=== PATIENT | male | born 1955 | race Caucasian/White ===

== ENCOUNTER 2016-11-10 13:23 | Inpatient (IN) | payer OTHER ==
[2016-11-10 14:57] VITALS: BMI 28.2
--- NOTE | 2016-11-10 17:19 | HP ---
CIWA Score - CIWA Score Nausea/Vomitin-Mild Nausea/No Vomiting Muscle Tremors: 4-Moderate,w/Arms Extend Anxiety: 4-Mod. Anxious/Guarded Agitation: 4-Moderately Restless Paroxysmal Sweats: 1-Minimal Palms Moist Orientation: 0-Oriented Tacttile Disturbances: 0-None Auditory Disturbances: 0-None Visual Disturbances: 0-None Headache: 0-None Present CIWA-Ar Total Score: 14 Admission ROS BHS - HPI Chief Complaint: withdrawal sx Allergies/Adverse Reactions: Allergies Allergy/AdvReac Type Severity Reaction Status Date / Time bupropion HCl Allergy Mild Rash Verified 11/10/16 16:28 [From Wellbutrin] History of Present Illness: 61 years old male with long history of alcohol dependence has bph and anxiety is admitted to detox Exam Limitations: No Limitations - Ebola screening Have you traveled outside of the country in the last 21 days: No Have you had contact with anyone from an Ebola affected area: No Have you been sick,other than usual withdrawal symptoms: No Do you have a fever: No - Review of Systems Constitutional: Chills, Changes in sleep, Weight Stable EENT: reports: Blurred Vision (eye glasses), Dental Problems (multiple teeth missing) Respiratory: reports: No Symptoms reported Cardiac: reports: No Symptoms Reported GI: reports: Nausea, Poor Fluid Intake, Abdominal cramping : reports: Frequency Musculoskeletal: reports: Back Pain Integumentary: reports: No Symptoms Reported Neuro: reports: Tremors Endocrine: reports: No Symptoms Reported Hematology: reports: No Symptoms Reported Psychiatric: reports: No Sypmtoms Reported, Judgement Intact, Orientated x3, Anxious Other Systems: Reviewed and Negative Patient History - Patient Medical History Hx Anemia: No Hx Asthma: No Hx Chronic Obstructive Pulmonary Disease (COPD): No Hx Cancer: No Hx Cardiac Disorders: No Hx Congestive Heart Failure: No Hx Hypertension: No Hx Hypercholesterolemia: No Hx Pacemaker: No HX Cerebrovascular Accident: No Hx Seizures: No Hx Dementia: No Hx Diabetes: No Hx Gastrointestinal Disorders: No Hx Liver Disease: No Hx Genitourinary Disorders: No Hx Sexually Transmitted Disorders: No Hx Renal Disease (ESRD): No Hx Thyroid Disease: No Hx Human Immunodeficiency Virus (HIV): No (negative) Hx Hepatitis C: No Hx Depression: Yes Hx Suicide Attempt: Yes (tried to OD pill 8yrs ago. denies any S&H ideation at presetn) Hx Bipolar Disorder: No Hx Schizophrenia: No - Patient Surgical History Past Surgical History: Yes Hx Neurologic Surgery: No Hx Cataract Extraction: No Hx Cardiac Surgery: No Hx Lung Surgery: No Hx Breast Surgery: No Hx Breast Biopsy: No Hx Abdominal Surgery: No Hx Appendectomy: No Hx Cholecystectomy: No Hx Genitourinary Surgery: No Hx Orthopedic Surgery: No Other Surgical History: tonsillectomy at age 1 Anesthesia Reaction: No - PPD History Previous Implant?: Yes Documented Results: Negative w/o proof Implanted On Prior R Admission?: No PPD to be Administered?: Yes - Smoking Cessation Smoking history: Former smoker Have you smoked in the past 12 months: No Hx Chewing Tobacco Use: No Initiated information on smoking cessation: No - Substance & Tx. History Hx Alcohol Use: Yes Hx Substance Use: No Substance Use Type: Alcohol Hx Substance Use Treatment: Yes (05/19-05/20/15 [facility] - Substances Abused Alcohol Route: Oral Frequency: Daily Amount used: liquor- 2 pint Age of first use: 12 Date of Last Use: 11/10/16 Family Disease History - Family Disease History Family Disease History: CA: Mother (stomach CA --), Brother (), Other: Father (alcohol,), Brother Admission Physical Exam S - Vital Signs Vital Signs: Vital Signs - 24 hr 11/10/16 14:55 Temperature 97.3 F L Pulse Rate 103 H Respiratory 18 Rate Blood Pressure 126/70 - Physical General Appearance: Yes: Nourished, Appropriately Dressed, Mild Distress, Alcohol on Breath, Tremorous, Irritable, Sweating, Anxious HEENTM: Yes: Hearing grossly Normal, Normal ENT Inspection, Normocephalic, Normal Voice Respiratory: Yes: Chest Non-Tender, Lungs Clear, Normal Breath Sounds, No Respiratory Distress, No Accessory Muscle Use Neck: Yes: Supple, Trachea in good position Breast: Yes: Breasts Symetrical Cardiology: Yes: Regular Rhythm, S1, S2, Tachycardia Abdominal: Yes: Normal Bowel Sounds, Non Tender, Soft Genitourinary: Yes: Frequency Back: Yes: Normal Inspection Musculoskeletal: Yes: full range of Motion, Gait Steady, Back pain Extremities: Yes: Normal Range of Motion, Non-Tender, Tremors Neurological: Yes: Fully Oriented, Alert, Motor Strength 5/5, Normal Response, Depressed Affect Integumentary: Yes: Warm Lymphatic: Yes: Within Normal Limits - Diagnostic (1) Alcohol dependence with uncomplicated withdrawal Current Visit: Yes Status: Acute (2) Benign prostatic hypertrophy Current Visit: Yes Status: Chronic Qualifiers: Lower urinary tract symptom presence: symptoms present Lower urinary tract symptom detail: urinary frequency Qualified Code(s): N40.1 - Benign prostatic hyperplasia with lower urinary tract symptoms; R35.0 - Frequency of micturition (3) Anxiety with depression Current Visit: Yes Status: Suspected Comment: follow up with psychiatrist Cleared for Admission [facility] - Detox or Rehab [facility] Level of Care: Medically Managed Detox Regimen/Protocol: Librium [facility] Breath Alcohol Content Breath Alcohol Content: 0.103 Urine Drug Screen - Results Drug Screen Negative: No Urine Drug Screen Results: BZO-Benzodiazepines
[2016-11-10] MEDS ORDERED: guaiFENesin/D-METHORPHAN HB 10 ML UNIT-DOSE CUPS PO PRN (17:23)
[2016-11-10] MEDS ORDERED: MAGNESIUM HYDROX 2400MG/30ML ORAL SUSPENSION 30 ML CUP PO PRN (17:23)
[2016-11-10] MEDS ORDERED: MAGNESIUM CITRATE 300 ML BOTTLE PO PRN (17:23)
[2016-11-10] MEDS ORDERED: P-EPHED 60MG/TRIPROLIDI 2.5MG TABLET PO PRN (17:23)
[2016-11-10] MEDS ORDERED: MENTHOL/PHENOL 1 EACH UD MM PRN (17:23)
[2016-11-10] MEDS ORDERED: IBUPROFEN 400 MG TABLET (FP) PO PRN (17:23)
[2016-11-10] MEDS ORDERED: hydrOXYzine PAMOATE 50 MG CAPSULE (FP) PO PRN (17:23)
[2016-11-10] MEDS ORDERED: MAG HYDROX/AL HYDROX/SIMETH 30 ML UNIT-DOSE CUP PO PRN (17:23)
[2016-11-10] MEDS ORDERED: chlordiazePOXIDE HCL 25 MG CAPSULE PO ONE (18:00)
[2016-11-10] MEDS: THIAMINE HCL 100 MG TABLET (FP) PO SCH (22:12)
[2016-11-10] MEDS: chlordiazePOXIDE HCL 25 MG CAPSULE PO SCH (22:13)
[2016-11-10 23:21] LABS: URINE APPEARANCE CLEAR; URINE BILIRUBIN NEGATIVE (NEGATIVE); URINE BLOOD 1+ (NEGATIVE); URINE COLOR STRAW; URINE GLUCOSE (UA) NEGATIVE (NEGATIVE); URINE KETONE TRACE (NEGATIVE); URINE LEUK ESTERASE TRACE (NEGATIVE); URINE NITRITE NEGATIVE (NEGATIVE); URINE PROTEIN NEGATIVE (NEGATIVE); URINE UROBILINOGEN NEGATIVE mg/dL (0.2-1.0)
[2016-11-10 23:56] LABS: URINE BACTERIA RARE /hpf (NONE SEEN); URINE MUCUS RARE; URINE RBC 1 /hpf (0-3); URINE WBC 1 /hpf (3-5)
[2016-11-11] MEDS: chlordiazePOXIDE HCL 25 MG CAPSULE PO SCH ×4 (05:34→22:12)
[2016-11-11] MEDS: FINASTERIDE 5 MG TABLET (FP) PO SCH (10:06)
[2016-11-11] MEDS: IBUPROFEN 600 MG TABLET (FP) PO PRN ×3 (10:06→22:13)
[2016-11-11] MEDS: PRENATAL VITAMINS W/ FOLIC ACID TABLET (FP) PO SCH (10:06)
[2016-11-11 10:33] LABS: ALBUMIN 3.8 g/dl (3.4-5.0); ANION GAP 11 (8-16); CALCIUM 9.2 mg/dL (8.5-10.1); CO2 23 mmol/L (21-32); GLUCOSE,RANDOM 85 mg/dL (74-106)
[2016-11-11 10:36] LABS: ALK PHOS 89 U/L (45-117); BILIRUBIN,TOTAL 0.4 mg/dL (0.2-1.0); SGOT/AST 22 U/L (15-37); SGPT/ALT 31 U/L (12-78); TOT PROT 7.6 g/dl (6.4-8.2)
[2016-11-11 10:38] LABS: MCH 33.5 pg (25.7-33.7); MCHC 33.8 g/dl (32.0-35.9); MEAN CELL VOLUME 99.3 fl (80-96); MEAN PLT VOLUME 9.6 fl (7.5-11.1); PLATELET COUNT 221 K/MM3 (134-434); WHITE BLOOD COUNT 5.8 K/mm3 (4.0-10.0)
--- NOTE | 2016-11-11 11:56 | PN ---
[facility] CIWA - CIWA Score Nausea/Vomitin Muscle Tremors: 4-Moderate,w/Arms Extend Anxiety: 3 Agitation: 3 Paroxysmal Sweats: 2 Orientation: 0-Oriented Tacttile Disturbances: 3-Moderate Itch/Numb/Burn Auditory Disturbances: 0-None Visual Disturbances: 0-None Headache: 0-None Present CIWA-Ar Total Score: 17 BHS Progress Note (SOAP) Subjective: Tremors, Body Aches. Objective: PT. A & O X 3, OBSERVED AMBULATING ON UNIT. NO ACUTE DISTRESS. PT. DENIES CHEST PAIN. 11/11/16 11:54 Vital Signs Temperature 97.4 F L 11/11/16 09:54 Pulse Rate 76 11/11/16 09:54 Respiratory Rate 18 11/11/16 09:54 Blood Pressure 120/79 11/11/16 09:54 O2 Sat by Pulse Oximetry (%) Laboratory Tests 11/10/16 11/11/16 11/11/16 23:11 06:00 06:00 WBC 5.8 D RBC 4.45 D Hgb 14.9 D Hct 44.2 D MCV 99.3 H MCH 33.5 MCHC 33.8 RDW 14.0 D Plt Count 221 MPV 9.6 D Sodium 144 Potassium 3.7 Chloride 110 H Carbon Dioxide 23 Anion Gap 11 BUN 17 D Creatinine 1.0 D Creat Clearance w eGFR > 60 Random Glucose 85 Calcium 9.2 Total Bilirubin 0.4 AST 22 D ALT 31 D Alkaline Phosphatase 89 Total Protein 7.6 D Albumin 3.8 Urine Color Straw Urine Appearance Clear Urine pH 6.0 Urine Protein Negative Urine Glucose (UA) Negative Urine Ketones Trace H Urine Blood 1+ H Urine Nitrite Negative Urine Bilirubin Negative Urine Urobilinogen Negative Ur Leukocyte Esterase Trace Urine RBC 1 Urine WBC 1 Ur Epithelial Cells Rare Urine Bacteria Rare Urine Mucus Rare LABS NOTED. RPR RESULT PENDING. 11/11/16 11:56 Assessment: 11/11/16 11:54 WITHDRAWAL SYMPTOMS. Plan: CONTINUE DETOX.
--- NOTE | 2016-11-11 12:33 | CONSULT ---
[facility] Psychiatric Consult - Data Date of interview: 11/11/16 Admission source: [facility] Identifying data: Readmission to [facility] for this 61 y/o male seeking detox treatment on for alcohol dependence.Patient is single without children,domiciled,unemployed and supported on [facility] benefits. Substance Abuse History: Discussed with patient in this session.Mr Reno confirms this report. Smoking Cessation. Smoking history: Former smoker. Have you smoked in the past 12 months: No. Hx Chewing Tobacco Use: No. Initiated information on smoking cessation: No. - Substance & Tx. History. Hx Alcohol Use: Yes. Hx Substance Use: No. Substance Use Type: Alcohol. Hx Substance Use Treatment: Yes (05/19-05/20/15 [facility]). - Substances Abused. * * Alcohol. Route: Oral. Frequency: Daily. Amount used: liquor- 2 pint. Age of first use: 12. Date of Last Use: 11/10/16 Medical History: History of spinal stenosis,angina and lower back pain.Currently treated for benign prostatic hyperplasia. Psychiatric History: Patient denies. Physical/Sexual Abuse/Trauma History: Patient denies. Additional Comment: Urine Drug Screen Results: BZO-Benzodiazepines.Noted. Mental Status Exam - Mental Status Exam Alert and Oriented to: Time, Place, Person Cognitive Function: Good Patient Appearance: Disheveled Mood: Nervous, Withdrawn Affect: Normal Range Patient Behavior: Fatigued, Appropriate, Cooperative Speech Pattern: Clear Voice Loudness: Normal Thought Process: Goal Oriented Thought Disorder: Not Present Hallucinations: Denies Suicidal Ideation: Denies Homicidal Ideation: Denies Insight/Judgement: Fair Sleep: Well Appetite: Good Muscle strength/Tone: Normal Gait/Station: Normal Psychiatric Findings - Problem List ([place] 1, 2,3) (1) Alcohol dependence with uncomplicated withdrawal Current Visit: Yes Status: Acute (2) History of angina Current Visit: Yes Status: Chronic (3) Benign prostatic hypertrophy Current Visit: Yes Status: Chronic Qualifiers: Lower urinary tract symptom presence: symptoms present Lower urinary tract symptom detail: urinary frequency Qualified Code(s): N40.1 - Benign prostatic hyperplasia with lower urinary tract symptoms; R35.0 - Frequency of micturition (4) Chronic low back pain Current Visit: Yes Status: Chronic (5) Spinal stenosis at L4-L5 level Current Visit: Yes Status: Chronic - Initial Treatment Plan Initial Treatment Plan: Psychoeducation.Detoxification.Observation.
[2016-11-11] MEDS: chlordiazePOXIDE HCL 25 MG CAPSULE PO PRN (13:40)
--- NOTE | 2016-11-11 20:02 | EKG ---
Test Reason : Blood Pressure : / mmHG Vent. Rate : 079 BPM Atrial Rate : 079 BPM P-R Int : 188 ms QRS Dur : 162 ms QT Int : 440 ms P-R-T Axes : 073 135 055 degrees QTc Int : 504 ms NORMAL SINUS RHYTHM RIGHT BUNDLE BRANCH BLOCK ABNORMAL ECG NO PREVIOUS ECGS AVAILABLE Confirmed by LUCY FALK MD ([id number]) on 11/11/2016 8:01:30 PM Referred By: Confirmed By:LUCY FALK MD
[2016-11-11] MEDS: diphenhydrAMINE HCL 50 MG CAPSULE PO PRN (22:14)
[2016-11-11] MEDS: THIAMINE HCL 100 MG TABLET (FP) PO SCH (22:15)
[2016-11-12] MEDS: ACETAMINOPHEN 325 MG TABLET (FP) PO PRN ×2 (03:28→22:09)
[2016-11-12] MEDS: chlordiazePOXIDE HCL 25 MG CAPSULE PO PRN ×2 (03:29→14:41)
[2016-11-12] MEDS: chlordiazePOXIDE HCL 25 MG CAPSULE PO SCH ×3 (06:09→17:29)
--- NOTE | 2016-11-12 09:35 | PN ---
S CIWA - CIWA Score Nausea/Vomitin Muscle Tremors: 4-Moderate,w/Arms Extend Anxiety: 4-Mod. Anxious/Guarded Agitation: 3 Paroxysmal Sweats: 3 Orientation: 0-Oriented Tacttile Disturbances: 1-Very Mild Itch/Numbness Auditory Disturbances: 0-None Visual Disturbances: 0-None Headache: 0-None Present CIWA-Ar Total Score: 18 BHS Progress Note (SOAP) Subjective: nausea, sweats, interrupted sleep, anxiety, tremors Objective: 11/12/16 09:34 Vital Signs - 24 hr 11/11/16 11/11/16 11/11/16 09:54 13:41 18:01 Temperature 97.4 F L 98.7 F 98.4 F Pulse Rate 76 69 61 Respiratory 18 20 18 Rate Blood Pressure 120/79 130/89 117/74 11/11/16 11/12/16 11/12/16 22:20 00:26 03:30 Temperature 97.2 F L Pulse Rate 66 Respiratory 18 18 18 Rate Blood Pressure 124/87 11/12/16 06:41 Temperature 97.5 F L Pulse Rate 71 Respiratory 18 Rate Blood Pressure 116/85 Laboratory Tests 11/10/16 11/11/16 11/11/16 23:11 06:00 06:00 WBC 5.8 D RBC 4.45 D Hgb 14.9 D Hct 44.2 D MCV 99.3 H MCH 33.5 MCHC 33.8 RDW 14.0 D Plt Count 221 MPV 9.6 D Sodium 144 Potassium 3.7 Chloride 110 H Carbon Dioxide 23 Anion Gap 11 BUN 17 D Creatinine 1.0 D Creat Clearance w eGFR > 60 Random Glucose 85 Calcium 9.2 Total Bilirubin 0.4 AST 22 D ALT 31 D Alkaline Phosphatase 89 Total Protein 7.6 D Albumin 3.8 Urine Color Straw Urine Appearance Clear Urine pH 6.0 Ur Specific [place] 1.010 Urine Protein Negative Urine Glucose (UA) Negative Urine Ketones Trace H Urine Blood 1+ H Urine Nitrite Negative Urine Bilirubin Negative Urine Urobilinogen Negative Ur Leukocyte Esterase Trace Urine RBC 1 Urine WBC 1 Ur Epithelial Cells Rare Urine Bacteria Rare Urine Mucus Rare RPR Titer 11/11/16 06:00 WBC RBC Hgb Hct MCV MCH MCHC RDW Plt Count MPV Sodium Potassium Chloride Carbon Dioxide Anion Gap BUN Creatinine Creat Clearance w eGFR Random Glucose Calcium Total Bilirubin AST ALT Alkaline Phosphatase Total Protein Albumin Urine Color Urine Appearance Urine pH Ur Specific [place] Urine Protein Urine Glucose (UA) Urine Ketones Urine Blood Urine Nitrite Urine Bilirubin Urine Urobilinogen Ur Leukocyte Esterase Urine RBC Urine WBC Ur Epithelial Cells Urine Bacteria Urine Mucus RPR Titer Nonreactive Assessment: 11/12/16 09:35 withdrawal sx, imodium for diarrhea Plan: cont detox, fluids, encoruage ambulation
[2016-11-12] MEDS: PRENATAL VITAMINS W/ FOLIC ACID TABLET (FP) PO SCH (10:13)
[2016-11-12] MEDS: FINASTERIDE 5 MG TABLET (FP) PO SCH (10:14)
[2016-11-12] MEDS: LOPERAMIDE HCL 2 MG CAPSULE PO PRN ×2 (10:14→17:29)
[2016-11-12] MEDS: IBUPROFEN 600 MG TABLET (FP) PO PRN ×2 (10:14→17:31)
[2016-11-12] MEDS: chlordiazePOXIDE 5 MG CAPSULE PO SCH (22:08)
[2016-11-12] MEDS: THIAMINE HCL 100 MG TABLET (FP) PO SCH (22:08)
[2016-11-12] MEDS: diphenhydrAMINE HCL 50 MG CAPSULE PO PRN (22:10)
[2016-11-13] MEDS: chlordiazePOXIDE 5 MG CAPSULE PO SCH ×3 (05:45→19:09)
[2016-11-13] MEDS: IBUPROFEN 600 MG TABLET (FP) PO PRN ×2 (05:46→22:23)
[2016-11-13] MEDS: LOPERAMIDE HCL 2 MG CAPSULE PO PRN (05:46)
[2016-11-13] MEDS: PRENATAL VITAMINS W/ FOLIC ACID TABLET (FP) PO SCH (10:15)
[2016-11-13] MEDS: FINASTERIDE 5 MG TABLET (FP) PO SCH (10:15)
[2016-11-13] MEDS: ACETAMINOPHEN 325 MG TABLET (FP) PO PRN (10:16)
[2016-11-13] MEDS: chlordiazePOXIDE HCL 25 MG CAPSULE PO PRN (13:08)
--- NOTE | 2016-11-13 15:02 | PN ---
BHS Progress Note (SOAP) Subjective: Sweating,interrupted sleep,restless Objective: 11/13/16 15:00 Vital Signs - 8 hr 11/13/16 11/13/16 11/13/16 09:29 09:45 13:49 Temperature 97.9 F 97.9 F 98.0 F Pulse Rate 72 18 L 75 Respiratory 18 72 H 18 Rate Blood Pressure 116/81 116/81 128/83 Laboratory Last Values WBC 5.8 K/mm3 (4.0-10.0) D 11/11/16 06:00 RBC 4.45 M/mm3 (4.00-5.60) D 11/11/16 06:00 Hgb 14.9 GM/dL (11.7-16.9) D 11/11/16 06:00 Hct 44.2 % (35.4-49) D 11/11/16 06:00 MCV 99.3 fl (80-96) H 11/11/16 06:00 MCH 33.5 pg (25.7-33.7) 11/11/16 06:00 MCHC 33.8 g/dl (32.0-35.9) 11/11/16 06:00 RDW 14.0 % (11.9-15.9) D 11/11/16 06:00 Plt Count 221 K/MM3 (134-434) 11/11/16 06:00 MPV 9.6 fl (7.5-11.1) D 11/11/16 06:00 Sodium 144 mmol/L (136-145) 11/11/16 06:00 Potassium 3.7 mmol/L (3.5-5.1) 11/11/16 06:00 Chloride 110 mmol/L (98-107) H 11/11/16 06:00 Carbon Dioxide 23 mmol/L (21-32) 11/11/16 06:00 Anion Gap 11 (8-16) 11/11/16 06:00 BUN 17 mg/dL (7-18) D 11/11/16 06:00 Creatinine 1.0 mg/dL (0.7-1.3) D 11/11/16 06:00 Creat Clearance w eGFR > 60 (>60) 11/11/16 06:00 Random Glucose 85 mg/dL (74-106) 11/11/16 06:00 Calcium 9.2 mg/dL (8.5-10.1) 11/11/16 06:00 Total Bilirubin 0.4 mg/dL (0.2-1.0) 11/11/16 06:00 AST 22 U/L (15-37) D 11/11/16 06:00 ALT 31 U/L (12-78) D 11/11/16 06:00 Alkaline Phosphatase 89 U/L (45-117) 11/11/16 06:00 Total Protein 7.6 g/dl (6.4-8.2) D 11/11/16 06:00 Albumin 3.8 g/dl (3.4-5.0) 11/11/16 06:00 Urine Color Straw 11/10/16 23:11 Urine Appearance Clear 11/10/16 23:11 Urine pH 6.0 (5.0-8.0) 11/10/16 23:11 Ur Specific [place] 1.010 (1.005-1.025) 11/10/16 23:11 Urine Protein Negative (NEGATIVE) 11/10/16 23:11 Urine Glucose (UA) Negative (NEGATIVE) 11/10/16 23:11 Urine Ketones Trace (NEGATIVE) H 11/10/16 23:11 Urine Blood 1+ (NEGATIVE) H 11/10/16 23:11 Urine Nitrite Negative (NEGATIVE) 11/10/16 23:11 Urine Bilirubin Negative (NEGATIVE) 11/10/16 23:11 Urine Urobilinogen Negative mg/dL (0.2-1.0) 11/10/16 23:11 Ur Leukocyte Esterase Trace (NEGATIVE) 11/10/16 23:11 Urine RBC 1 /hpf (0-3) 11/10/16 23:11 Urine WBC 1 /hpf (3-5) 11/10/16 23:11 Ur Epithelial Cells Rare /hpf (FEW) 11/10/16 23:11 Urine Bacteria Rare /hpf (NONE SEEN) 11/10/16 23:11 Urine Mucus Rare 11/10/16 23:11 RPR Titer Nonreactive (NONREACTIVE) 11/11/16 06:00 labs noted Assessment: 11/13/16 15:01 Withdrawal sx. Plan: Continue detox
[2016-11-13] MEDS ORDERED: QUEtiapine FUMARATE 100 MG TABLET (FP) PO ONE (15:11)
[2016-11-13] MEDS ORDERED: QUEtiapine FUMARATE 50 MG TABLET PO ONE (15:28)
--- NOTE | 2016-11-13 16:27 | PN ---
Psychiatric Progress Note Vital Signs: Vital Signs Period Temp Pulse Resp BP Sys/Negrete Pulse Ox Last 24 Hr 97.2 F-98.6 F 18- 18-72 110-128/77-93 Date of Session: 11/13/16 Chief Complaint:: " I want to kill myself.My life is so miserable." HPI: Day 4 of treatment for alcohol dependence.Hospital course was uneventful until the patient reported today to his counselor that he " lied to staff in the emergency room to get admitted up here " and endorsed visual hallucinations (seeing flashes of light) + feelings of worthlessness and suicidal ideation.Mr Reno indicates that he " does not trust " himself and,if discharged home,he would put one of his guns to his mouth and " end it all." Patient has concealed his psychiatric history to staff since admission.Mr Reno only reported today that he had " more than 25 psychiatric admissions " and gets his psychiatric OPD care at the [facility] clinic (non adherent to his regimen of medications for two weeks : seroquel,remeron, haloperidol,citalopram). ROS: Patient is ambulatory,visible on the unit.Alert and fully oriented.No physical complaints offered. Current Medications: Active Medications Generic Name Dose Route Start Last Admin Trade Name Freq PRN Reason Stop Dose Admin Acetaminophen 650 mg 11/10/16 17:23 11/13/16 10:16 Tylenol - PO 650 mg Q4H PRN Administration FEVER OR PAIN Al Hydroxide/Mg Hydroxide 30 ml 11/10/16 17:23 Mylanta Oral Suspension - PO Q6H PRN DYSPEPSIA Chlordiazepoxide HCl 10 mg 11/13/16 23:00 Librium - PO 11/14/16 17:01 [id number] ROSALVA Chlordiazepoxide HCl 25 mg 11/10/16 17:23 11/13/16 13:08 Librium - PO 11/13/16 17:22 25 mg Q4H PRN Administration WITHDRAWAL(CONT SUBST) Chlordiazepoxide HCl 15 mg 11/12/16 23:00 11/13/16 10:14 Librium - PO 11/13/16 17:01 15 mg [id number] ROSALVA Administration Diphenhydramine HCl 50 mg 11/10/16 17:23 11/12/16 22:10 Benadryl - PO 50 mg HSMR1 PRN Administration INSOMNIA Eucalyptus/Menthol/Phenol/Sorbitol 1 each 11/10/16 17:23 Cepastat Lozenge - MM Q4H PRN SORE THROAT Finasteride 5 mg 11/11/16 10:00 11/13/16 10:15 Proscar - PO 5 mg DAILY ROSALVA Administration Guaifenesin 10 ml 11/10/16 17:23 Robitussin Dm - PO Q6H PRN COUGH Hydroxyzine Pamoate 50 mg 11/10/16 17:23 11/12/16 03:29 Vistaril - PO 50 mg Q4H PRN Administration AGITATION Ibuprofen 600 mg 11/11/16 09:46 11/13/16 05:46 Motrin - PO 600 mg Q8H PRN Administration SEVERE PAIN Loperamide HCl 4 mg 11/10/16 17:23 11/13/16 05:46 Imodium - PO 4 mg Q6H PRN Administration DIARRHEA Magnesium Citrate 300 ml 11/10/16 17:23 Citroma - PO Q48H PRN CONSTIPATION Magnesium Hydroxide 30 ml 11/10/16 17:23 Milk Of Magnesia - PO DAILY PRN CONSTIPATION Multivit/Folic Acid/Iron 1 tab 11/11/16 10:00 11/13/16 10:15 Vitamins (Sjr) - PO 1 tab DAILY ROSALVA Administration Pseudoephedrine/Triprolidine 1 combo 11/10/16 17:23 Actifed - PO TID PRN NASAL CONGESTION Thiamine HCl 100 mg 11/10/16 22:00 11/12/16 22:08 Vitamin B1 - PO Not Given HS [facility] Medication(s) Change(s): On admission,the patient denied being on psychotropic medications." I thought that revealing my psychiatric history would have compromised my admission to the detox unit.So I denied everything on admission. " Patient is now willing to resume medications.Mr Reno confirms recent pharmacy claims consistent with scripts for celexa 20 mg/day + seroquel 200 mg po bid + buspar 5 mg po tid.Reportedly non-aherent for two weeks.Will restart all medications (seroquel is to be reduced to 100 mg po bid and titrated).Side effects/benefits discussed with the patient.He is in agreement with this careplan. Current Side Effect: No Lab tests ordered: No Lab tests reviewed: Yes Provider note:: Patient is interviewed in a Multidisciplinary conference attended by counselor Kaitlyn Aguilar,counselor human services supervisor Amy Sim,nurse Camryn Hubbard,couselor Son-Tam Turner and attending psychiatrist Dr Herman Rhodes.Chart reviewed.Pharmacy claims revisited and disposition discussed.Mr Reno insists that he feels unworthy of living,intensely suicidal,despondent over " so many losses " in his life and declares to the treatment team that he will use one of his guns,once discharged,to end his life.Patient made staff aware of the recent of his younger brother to suicide (deliberate overdose with pain medications) last month.Mr Reno states that he is " tired of this miserable life ",a reference to multiple deaths in his immediate family,his social downdrift (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 career 10 years ago) and social withdrawal." I should have ten years ago ." Patient complains that he is " losing control " and he fears escalation towards self-destruction.This is a crisis situation that cannot be managed on a detox unit.Transfer to a psychiatric institution is warranted for safety.Contact is established with [facility] : no bed available.Several calls made to [facility] : lines are busy.In the meantime,the patient is placed on 1:1 Constant Observation.Patient is a clear and immediate danger to self.Medications are restarted.See orders.Mr Reno is converted to 2 PC status pending transfer to a psychiatric institution. Total face to face time:: 90 Mental Status Exam - Mental Status Exam Alert and Oriented to: Time, Place, Person Cognitive Function: Good Patient Appearance: Well Groomed Mood: Sad (depressed), Anxious Affect: Constricted Patient Behavior: Cooperative Speech Pattern: Clear Voice Loudness: Normal Thought Process: Goal Oriented Thought Disorder: Not Present Hallucinations: Visual (sees intermittent flashes of light) Suicidal Ideation: Current (feels that he should have killed himself years ago.States that he does not deserve to live), Plan (plans to go home and shoot himself) Homicidal Ideation: Denies Insight/Judgement: Poor Sleep: Well Appetite: Good Muscle strength/Tone: Normal Gait/Station: Normal Psychiatric Treatment Plan - Problem List (1) Schizoaffective disorder Current Visit: Yes Qualifiers: Schizoaffective disorder type: depressive Qualified Code(s): F25.1 - Schizoaffective disorder, depressive type Comment: Potentially suicidal. (2) Alcohol dependence with uncomplicated withdrawal Current Visit: Yes (3) Bereavement Current Visit: Yes Comment: Younger brother reportedly committed suicide last month. (4) History of angina Current Visit: Yes (5) Benign prostatic hypertrophy Current Visit: Yes Qualifiers: Lower urinary tract symptom presence: symptoms present Lower urinary tract symptom detail: urinary frequency Qualified Code(s): N40.1 - Benign prostatic hyperplasia with lower urinary tract symptoms; R35.0 - Frequency of micturition (6) Chronic low back pain Current Visit: Yes (7) Spinal stenosis at L4-L5 level Current Visit: Yes
[2016-11-13] MEDS: THIAMINE HCL 100 MG TABLET (FP) PO SCH (22:21)
[2016-11-13] MEDS: chlordiazePOXIDE HCL 10 MG CAPSULE PO SCH (22:23)
[2016-11-13] MEDS: busPIRone HCL 5 MG TABLET PO SCH (22:23)
[2016-11-13] MEDS: QUEtiapine FUMARATE 100 MG TABLET (FP) PO SCH (22:23)
[2016-11-14] MEDS: busPIRone HCL 5 MG TABLET PO SCH (05:11)
[2016-11-14] MEDS: chlordiazePOXIDE HCL 10 MG CAPSULE PO SCH ×2 (05:11→10:03)
[2016-11-14] MEDS: IBUPROFEN 600 MG TABLET (FP) PO PRN (05:12)
[2016-11-14 06:23] VITALS: BP 102/79; PULSE 89; TEMP 97.4
[2016-11-14] MEDS ORDERED: CITALOPRAM HYDROBROMIDE 20 MG TABLET (FP) PO SCH (10:00)
[2016-11-14] MEDS: QUEtiapine FUMARATE 100 MG TABLET (FP) PO SCH (10:03)
[2016-11-14] MEDS: FINASTERIDE 5 MG TABLET (FP) PO SCH (10:04)
[2016-11-14] MEDS: PRENATAL VITAMINS W/ FOLIC ACID TABLET (FP) PO SCH (10:05)
--- NOTE | 2016-11-14 10:57 | PN ---
[facility] Progress Note Note: Psychiatry Attending's note : Patient seen. Mr Reno remains invested in suicidal thoughts and plan (use of gun). He admits to feeling " heavily " depressed,anhedonic and worthless. Now at the completion of detox treatment,patient is fearful of discharge. " I am not ready to return home where I would stay 22 hours/day in bed wasting my life." Patient is adamant about his disinterest about living and his intent to shoot himself as soon as he reaches home." Mr Reno is under tremendous stressors : non adherence to medications, of sibling,loneliness,substance abuse, degradation of general functioning. Risk of self-harm is magnified by current ownership of firearms (easily available) and lack of supportive network. The patient cannot be discharged to the community.Mr Reno needs psychiatric hospitalization. Unsuccessful search for bed.Several facilities are contacted via telephone : [facility] NO beds available. The situation has escalated into a crisis. Patient is not suitable for management at [facility]. EMS is activated for assistance. Patient is transferred to the psychiatric emergency department at [facility] for safety. Addendum (12:50 pm) : Building Materials Sales Attendant contacted [facility] at [phone] : Dr Rene not available at time of my call. Case endorsed to nurse on duty Raquel Daniel (informed of patient's arrival via EMS).
--- NOTE | 2016-11-14 12:09 | PN ---
[facility] Progress Note (SOAP) Subjective: Tremors, H/A. Objective: PATIENT CURRENTLY BEING MAINTAINED ON 1:1 CONTINUOUS OBSERVATION FOR SUICIDAL IDEATION. PATIENT A & O X 3, OBSERVED AMBULATING ON UNIT. 11/14/16 12:07 Vital Signs Temperature 97.4 F L 11/14/16 06:22 Pulse Rate 89 11/14/16 06:22 Respiratory Rate 16 11/14/16 06:22 Blood Pressure 102/79 11/14/16 06:22 O2 Sat by Pulse Oximetry (%) Laboratory Tests 11/10/16 11/11/16 11/11/16 23:11 06:00 06:00 WBC 5.8 D RBC 4.45 D Hgb 14.9 D Hct 44.2 D MCV 99.3 H MCH 33.5 MCHC 33.8 RDW 14.0 D Plt Count 221 MPV 9.6 D Sodium 144 Potassium 3.7 Chloride 110 H Carbon Dioxide 23 Anion Gap 11 BUN 17 D Creatinine 1.0 D Creat Clearance w eGFR > 60 Random Glucose 85 Calcium 9.2 Total Bilirubin 0.4 AST 22 D ALT 31 D Alkaline Phosphatase 89 Total Protein 7.6 D Albumin 3.8 Urine Color Straw Urine Appearance Clear Urine pH 6.0 Ur Specific [place] 1.010 Urine Protein Negative Urine Glucose (UA) Negative Urine Ketones Trace H Urine Blood 1+ H Urine Nitrite Negative Urine Bilirubin Negative Urine Urobilinogen Negative Ur Leukocyte Esterase Trace Urine RBC 1 Urine WBC 1 Ur Epithelial Cells Rare Urine Bacteria Rare Urine Mucus Rare RPR Titer 11/11/16 06:00 WBC RBC Hgb Hct MCV MCH MCHC RDW Plt Count MPV Sodium Potassium Chloride Carbon Dioxide Anion Gap BUN Creatinine Creat Clearance w eGFR Random Glucose Calcium Total Bilirubin AST ALT Alkaline Phosphatase Total Protein Albumin Urine Color Urine Appearance Urine pH Ur Specific [place] Urine Protein Urine Glucose (UA) Urine Ketones Urine Blood Urine Nitrite Urine Bilirubin Urine Urobilinogen Ur Leukocyte Esterase Urine RBC Urine WBC Ur Epithelial Cells Urine Bacteria Urine Mucus RPR Titer Nonreactive LABS NOTED. Assessment: 11/14/16 12:08 WITHDRAWAL SYMPTOMS. Plan: CONTINUE DETOX.
--- NOTE | 2016-11-14 12:15 | DS ---
[facility] Detox Discharge Summary Admission Date: 11/10/16 Discharge Date: 11/14/16 - History Present History: Alcohol Dependence Additional Comments: PER RECOMMENDATION OF PSYCHIATRIST DR. VALERIY MD, PATIENT BEING TRANSFERRED TO [facility]IT FOR FURTHER EVALUATION AFTER REPORT OF SUICIDAL IDEATION WHILE ADMITTED FOR DETOX. PATIENT MAINTAINED ON 1:1 CONTINUOUS OBSERVATION FOR SUICIDAL IDEATION UP UNTIL TIME OF DISCHARGE. PATIENT DISCHARGED FROM UNIT IN STABLE MEDICAL CONDITION. PATIENT TAKEN VIA AMBULANCE TO [facility] UNIT. Pertinent Past History: BPH, Depression / Anxiety, Spinal Stenosis, Chronic Low Back Pain, History of angina. - Physical Exam Results Vital Signs: Vital Signs Temperature 97.4 F L 11/14/16 06:22 Pulse Rate 89 11/14/16 06:22 Respiratory Rate 16 11/14/16 06:22 Blood Pressure 102/79 11/14/16 06:22 O2 Sat by Pulse Oximetry (%) Pertinent Admission Physical Exam Findings: WITHDRAWAL SYMPTOMS. Laboratory Tests 11/10/16 11/11/16 11/11/16 23:11 06:00 06:00 WBC 5.8 D RBC 4.45 D Hgb 14.9 D Hct 44.2 D MCV 99.3 H MCH 33.5 MCHC 33.8 RDW 14.0 D Plt Count 221 MPV 9.6 D Sodium 144 Potassium 3.7 Chloride 110 H Carbon Dioxide 23 Anion Gap 11 BUN 17 D Creatinine 1.0 D Creat Clearance w eGFR > 60 Random Glucose 85 Calcium 9.2 Total Bilirubin 0.4 AST 22 D ALT 31 D Alkaline Phosphatase 89 Total Protein 7.6 D Albumin 3.8 Urine Color Straw Urine Appearance Clear Urine pH 6.0 Ur Specific [place] 1.010 Urine Protein Negative Urine Glucose (UA) Negative Urine Ketones Trace H Urine Blood 1+ H Urine Nitrite Negative Urine Bilirubin Negative Urine Urobilinogen Negative Ur Leukocyte Esterase Trace Urine RBC 1 Urine WBC 1 Ur Epithelial Cells Rare Urine Bacteria Rare Urine Mucus Rare RPR Titer 11/11/16 06:00 WBC RBC Hgb Hct MCV MCH MCHC RDW Plt Count MPV Sodium Potassium Chloride Carbon Dioxide Anion Gap BUN Creatinine Creat Clearance w eGFR Random Glucose Calcium Total Bilirubin AST ALT Alkaline Phosphatase Total Protein Albumin Urine Color Urine Appearance Urine pH Ur Specific [place] Urine Protein Urine Glucose (UA) Urine Ketones Urine Blood Urine Nitrite Urine Bilirubin Urine Urobilinogen Ur Leukocyte Esterase Urine RBC Urine WBC Ur Epithelial Cells Urine Bacteria Urine Mucus RPR Titer Nonreactive LABS NOTED. - Treatment Hospital Course: Detox Protocol Followed, Detoxed Safely, Responded well, Discharged Condition Good - Medication Discharge Medications: Ambulatory Orders Finasteride [Proscar -] 5 mg PO DAILY 01/23/14 Nitroglycerin 0.4 mg SL DAILY PRN 05/19/15 - Diagnosis (1) Alcohol dependence with uncomplicated intoxication Status: Acute (2) Benign prostatic hypertrophy Status: Chronic Qualifiers: Lower urinary tract symptom presence: symptoms present Lower urinary tract symptom detail: urinary frequency Qualified Code(s): N40.1 - Benign prostatic hyperplasia with lower urinary tract symptoms; R35.0 - Frequency of micturition (3) Chronic low back pain Status: Chronic Qualifiers: Back pain laterality: unspecified Sciatica presence: unspecified whether sciatica present Qualified Code(s): M54.5 - Low back pain; G89.29 - Other chronic pain (4) History of angina Status: Chronic (5) Spinal stenosis at L4-L5 level Status: Chronic (6) Anxiety with depression Status: Suspected - AMA Did Patient Leave Against Medical Advice: No
== END 2016-11-14 12:37 | DRG 897 ==
LOC: YASAS 13:23 → Y3N 16:53
PROVIDERS: ADMIT Internal Medicine; ATTEND Internal Medicine
PROC: HZ2ZZZZ Detoxification Services for Substance Abuse Treatment (ICD-10-PCS; principal; 2016-11-10)
DX: F10.230 Alcohol dependence with withdrawal, uncomplicated (principal); R45.851 Suicidal ideations; F25.9 Schizoaffective disorder, unspecified; F41.8 Other specified anxiety disorders; N40.0 Benign prostatic hyperplasia without lower urinary tract symptoms; M54.5 Low back pain; G89.29 Other chronic pain; Z86.79 Personal history of other diseases of the circulatory system; R00.0 Tachycardia, unspecified; M48.06 Spinal stenosis, lumbar region; R19.7 Diarrhea, unspecified; Z88.8 Allergy status to other drugs, medicaments and biological substances; Z63.4 Disappearance and death of family member; Z87.891 Personal history of nicotine dependence; Z91.5 Personal history of self-harm
CPT/HCPCS: 36415; 80053; 81003; 81015; 85027; 86593; 93005; 93010

== ENCOUNTER 2020-05-10 15:18 | Inpatient (IN) | payer OTHER ==
[2020-05-10] MEDS ORDERED: ACETAMINOPHEN 325 MG TABLET (FP) PO PRN ×2 (20:55)
[2020-05-10] MEDS ORDERED: METHOCARBAMOL 500 MG TABLET PO PRN (20:55)
[2020-05-10] MEDS ORDERED: chlordiazePOXIDE HCL 25 MG CAPSULE PO PRN (20:55)
[2020-05-10] MEDS ORDERED: ONDANSETRON *ODT* 4 MG TABLET SL PRN (20:55)
[2020-05-10] MEDS ORDERED: MAGNESIUM HYDROX 2400MG/30ML ORAL SUSPENSION 30 ML CUP PO PRN (20:55)
[2020-05-10] MEDS ORDERED: MELATONIN 5 MG TABLETS PO PRN (20:55)
[2020-05-10] MEDS ORDERED: IBUPROFEN 400 MG TABLET (FP) PO PRN (20:55)
[2020-05-10] MEDS ORDERED: MAGNESIUM CITRATE 300 ML BOTTLE PO PRN (20:55)
[2020-05-10] MEDS ORDERED: BISMUTH SUBSALICYLATE 524 MG/30 ML UD PO PRN (20:55)
[2020-05-10] MEDS ORDERED: MAG HYDROX/AL HYDROX/SIMETH 30 ML UNIT-DOSE CUP PO PRN (20:55)
[2020-05-10] MEDS ORDERED: NICOTINE POLACRILEX 2 MG GUM BUC PRN (20:55)
[2020-05-10] MEDS ORDERED: MENTHOL/PHENOL 1 EACH UD MM PRN (20:55)
[2020-05-10] MEDS ORDERED: NITROGLYCERIN SUBLINGUAL 1/150 0.4 MG TAB SL PRN (22:17)
[2020-05-10] MEDS: THIAMINE HCL 100 MG TABLET (FP) PO SCH (22:36)
[2020-05-10] MEDS: chlordiazePOXIDE HCL 25 MG CAPSULE PO SCH (22:41)
[2020-05-11] MEDS: chlordiazePOXIDE HCL 25 MG CAPSULE PO SCH ×4 (06:39→22:27)
[2020-05-11] MEDS: PRENATAL VITAMINS W/ FOLIC ACID TABLET (FP) PO SCH (10:22)
[2020-05-11] MEDS: DULoxetine HCL 20 MG CAPSULE.DR PO SCH (11:17)
[2020-05-11] MEDS: FINASTERIDE 5 MG TABLET (FP) PO SCH (11:17)
[2020-05-11 12:07] LABS: HEMATOCRIT 44.6 % (35.4-49); HEMOGLOBIN 15.1 GM/dL (11.7-16.9); MCH 33.6 pg (25.7-33.7); MEAN CELL VOLUME 98.9 fl (80-96); MEAN PLT VOLUME 9.5 fl (7.5-11.1); PLATELET COUNT 185 K/MM3 (134-434); RBC 4.51 M/mm3 (4.00-5.60); RDW 13.9 % (11.9-15.9); WHITE BLOOD COUNT 5.7 K/mm3 (4.0-10.0)
[2020-05-11 12:10] LABS: POTASSIUM 4.1 mmol/L (3.5-5.1)
[2020-05-11 12:13] LABS: ALBUMIN 3.8 g/dl (3.4-5.0); BLOOD UREA NITROGEN 27.2 mg/dL (7-18); CALCIUM 8.9 mg/dL (8.5-10.1)
[2020-05-11 12:18] LABS: BILIRUBIN,TOTAL 0.4 mg/dL (0.2-1); TOT PROT 7.4 g/dl (6.4-8.2)
[2020-05-11] MEDS: QUEtiapine FUMARATE 50 MG TABLET PO SCH (21:51)
[2020-05-11] MEDS: THIAMINE HCL 100 MG TABLET (FP) PO SCH (21:52)
[2020-05-12] MEDS: chlordiazePOXIDE HCL 25 MG CAPSULE PO SCH ×4 (06:35→23:36)
[2020-05-12] MEDS: DULoxetine HCL 20 MG CAPSULE.DR PO SCH (10:48)
[2020-05-12] MEDS: PRENATAL VITAMINS W/ FOLIC ACID TABLET (FP) PO SCH (10:49)
[2020-05-12] MEDS: FINASTERIDE 5 MG TABLET (FP) PO SCH (10:49)
[2020-05-12 13:40] VITALS: BP 128/87; PULSE 84; TEMP 96.4
[2020-05-12] MEDS ORDERED: MASKS NR ONE (15:21)
[2020-05-12] MEDS: QUEtiapine FUMARATE 50 MG TABLET PO SCH (23:28)
[2020-05-12] MEDS: THIAMINE HCL 100 MG TABLET (FP) PO SCH (23:29)
[2020-05-13] MEDS ORDERED: chlordiazePOXIDE HCL 10 MG CAPSULE PO PRN
[2020-05-13] MEDS: chlordiazePOXIDE HCL 10 MG CAPSULE PO SCH ×2 (06:59→11:09)
[2020-05-13] MEDS: PRENATAL VITAMINS W/ FOLIC ACID TABLET (FP) PO SCH (11:08)
[2020-05-13] MEDS: DULoxetine HCL 20 MG CAPSULE.DR PO SCH (11:08)
[2020-05-13] MEDS: FINASTERIDE 5 MG TABLET (FP) PO SCH (11:08)
[2020-05-14] MEDS ORDERED: chlordiazePOXIDE HCL 10 MG CAPSULE PO SCH (05:00)
[2020-05-15] MEDS ORDERED: chlordiazePOXIDE HCL 10 MG CAPSULE PO ONE (05:00)
== END 2020-05-13 11:10 | disposition left against medical advice (07) | DRG 894 ==
LOC: YASAS 15:18 → Y3N 21:46
PROVIDERS: ADMIT Allergy & Immunology; ATTEND Allergy & Immunology
PROC: HZ2ZZZZ Detoxification Services for Substance Abuse Treatment (ICD-10-PCS; principal; 2020-05-10)
DX: F10.230 Alcohol dependence with withdrawal, uncomplicated (principal); F13.230 Sedative, hypnotic or anxiolytic dependence with withdrawal, uncomplicated; F10.220 Alcohol dependence with intoxication, uncomplicated; F17.210 Nicotine dependence, cigarettes, uncomplicated; F25.1 Schizoaffective disorder, depressive type; F41.8 Other specified anxiety disorders; M48.061 Spinal stenosis, lumbar region without neurogenic claudication; M54.5 Low back pain; G89.29 Other chronic pain; N40.1 Benign prostatic hyperplasia with lower urinary tract symptoms; R35.0 Frequency of micturition; J34.89 Other specified disorders of nose and nasal sinuses; K08.89 Other specified disorders of teeth and supporting structures; R00.0 Tachycardia, unspecified; Z86.79 Personal history of other diseases of the circulatory system; Z63.4 Disappearance and death of family member; Z88.8 Allergy status to other drugs, medicaments and biological substances
CPT/HCPCS: 36415; 80053; 85027; 86780; 93005; 93010; C9803; U0003